=== PATIENT | male | born 1935 | race Caucasian/White ===

== ENCOUNTER 2022-05-05 19:47 | Emergency (ER) | payer OTHER ==
[2022-05-05 20:44] VITALS: TEMP 98; BMI 24.1
[2022-05-05 21:54] LABS: BASO % 0.6 % (0-2.0); EOS % 2.1 % (0-4.5); HEMATOCRIT 32.8 % (35.4-49); HEMOGLOBIN 10.6 GM/dL (11.7-16.9); LYMPH % 24.2 % (8-40); MCH 31.2 pg (25.7-33.7); MCHC 32.4 g/dl (32.0-35.9); MEAN CELL VOLUME 96.4 fl (80-96); MEAN PLT VOLUME 9.9 fl (7.5-11.1); MONO % 7.1 % (3.8-10.2); PLATELET COUNT 281 10^3/uL (134-434); RBC 3.41 M/mm3 (4.00-5.60); VENOUS O2 SATURATION 61.6 % (70-80); VENOUS PCO2 50.5 mmHg (38-52); VENOUS PH 7.401 (7.310-7.410); WHITE BLOOD COUNT 4.4 K/mm3 (4.0-10.0)
[2022-05-05 21:58] LABS: EPI CELLS 23 /uL (0-25.1); HYALINE CASTS 2 /uL (0-3.1); PH,URINE 7.5 (5.0-8.0); URINE APPEARANCE TURBID; URINE BACTERIA 6066 /uL (0-1359); URINE BILIRUBIN NEGATIVE (NEGATIVE); URINE COLOR YELLOW; URINE GLUCOSE (UA) NEGATIVE (NEGATIVE); URINE KETONE NEGATIVE (NEGATIVE); URINE LEUK ESTERASE 3+ (NEGATIVE); URINE NITRITE NEGATIVE (NEGATIVE); URINE PROTEIN 1+ (NEGATIVE); URINE RBC 146 /uL (0-23.9); URINE UROBILINOGEN 0.2 mg/dL (0.2-1.0); URINE WBC 1696 /uL (0-25.8)
[2022-05-05 22:04] LABS: INR 1.09 (0.83-1.09); PROTHROMBIN TIME (PATIENT) 12.5 SEC (9.7-13.0)
[2022-05-05 22:07] LABS: ACTIVATED PTT 29.1 SECONDS (25.2-36.5)
[2022-05-05 22:13] LABS: CHLORIDE 103 mmol/L (98-107); SODIUM 139 mmol/L (136-145)
[2022-05-05 22:15] LABS: CALCIUM 9.6 mg/dL (8.5-10.1)
[2022-05-05 22:16] LABS: ALBUMIN 2.6 g/dl (3.4-5.0); ANION GAP 6 MMOL/L (8-16); BLOOD UREA NITROGEN 15.2 mg/dL (7-18); CO2 30 mmol/L (21-32); GLUCOSE,RANDOM 95 mg/dL (74-106)
[2022-05-05 22:20] LABS: CREATININE 0.6 mg/dL (0.55-1.3); SGOT/AST 28 U/L (15-37); SGPT/ALT 39 U/L (13-61)
[2022-05-05 22:21] LABS: ALK PHOS 89 U/L (45-117); BILIRUBIN,TOTAL 0.2 mg/dL (0.2-1)
[2022-05-06 12:00] VITALS: BP 139/77; PULSE 86; RESP 17
== END 2022-05-06 12:13 | disposition home or self-care (01) ==
LOC: JER 19:47
DX: R06.02 Shortness of breath (principal)
CPT/HCPCS: 0241U-QW; 36415; 70450-TC; 71045-TC-FY; 80053; 80177; 81003; 82550; 82553; 82803; 83605; 84484; 85025; 85610; 85730; 86850; 86900; 86901; 87040; 87086; 87186; 93005; 93010; 99285-25

== ENCOUNTER 2022-09-15 14:23 | Emergency (ER) | payer OTHER ==
[2022-09-15 15:01] VITALS: BP 123/78; BMI 22.7
[2022-09-15 15:07] VITALS: PULSE 70
[2022-09-15] MEDS ORDERED: SODIUM CHLORIDE 500 ML IV STA (15:07)
[2022-09-15 15:24] VITALS: TEMP 97.9
[2022-09-15 15:51] LABS: BASO % 0.2 % (0-2.0); EOS % 0.8 % (0-4.5); HEMATOCRIT 28.7 % (35.4-49); HEMOGLOBIN 9.8 GM/dL (11.7-16.9); LYMPH % 35.7 % (8-40); MCH 32.7 pg (25.7-33.7); MONO % 8.7 % (3.8-10.2); NEUT % 54.6 % (42.8-82.8); PLATELET COUNT 214 10^3/uL (134-434); RBC 2.99 M/mm3 (4.00-5.60); RDW 15.4 % (11.9-15.9); WHITE BLOOD COUNT 5.9 K/mm3 (4.0-10.0)
[2022-09-15 15:52] LABS: EPI CELLS >36 /uL (0-25.1); HYALINE CASTS 18 /uL (0-3.1); URINE APPEARANCE TURBID; URINE BACTERIA 562 /uL (0-1359); URINE BILIRUBIN NEGATIVE (NEGATIVE); URINE COLOR YELLOW; URINE GLUCOSE (UA) NEGATIVE (NEGATIVE); URINE KETONE NEGATIVE (NEGATIVE); URINE LEUK ESTERASE 3+ (NEGATIVE); URINE NITRITE NEGATIVE (NEGATIVE); URINE PROTEIN 3+ (NEGATIVE); URINE WBC 15213 /uL (0-25.8)
[2022-09-15] MEDS ORDERED: CEFTRIAXONE 1,000 MG in DEXTROSE 5%-WATER - 50 ML IVPB ONE (15:54)
[2022-09-15 16:00] LABS: URINE RBC 419 /uL (0-23.9)
[2022-09-15 16:10] LABS: BLOOD UREA NITROGEN 17.9 mg/dL (7-18)
[2022-09-15 16:11] LABS: ALBUMIN 2.5 g/dl (3.4-5.0)
[2022-09-15 16:14] LABS: CREATININE 0.6 mg/dL (0.55-1.3)
[2022-09-15 16:16] LABS: BILIRUBIN,TOTAL 0.4 mg/dL (0.2-1); TOT PROT 6.9 g/dl (6.4-8.2)
[2022-09-15] MEDS ORDERED: CEFTRIAXONE 1 GM/50 ML BAG ONE (16:34)
[2022-09-15 17:30] VITALS: RESP 14
== END 2022-09-15 18:49 ==
LOC: JER 14:23
PROC: 3E033GC Introduction of Other Therapeutic Substance into Peripheral Vein, Percutaneous Approach (ICD-10-PCS; principal; 2022-09-15)
DX: N39.0 Urinary tract infection, site not specified (principal); T83.098A Other mechanical complication of other urinary catheter, initial encounter
CPT/HCPCS: 0241U-QW; 36415; 71045-TC-FY; 80053; 81003; 84484; 85025; 87086; 87186; 93005; 93010; 99285-25

== ENCOUNTER 2023-02-04 16:08 | Inpatient (IN) | payer OTHER ==
[2023-02-04 16:41] VITALS: BMI 23.9
[2023-02-04] MEDS ORDERED: PIPERACILLIN/TAZOB 4.5 GM 4.5 GM in DEXTROSE 5%-WATER 100 ML IVPB ONE (17:45)
[2023-02-04] MEDS ORDERED: VANCOMYCIN 1 GM in D5W (PRE-DOCKED) 1,000 MG/250 ML (RESTRICTED TO ID ONLY IVPB ONE (17:45)
[2023-02-04 18:03] LABS: ARTERIAL BLD GAS O2 SATURATION 98.7 % (95-98); ARTERIAL BLOOD GAS BASE EXCESS 3.1 mmol/L (-2-2); ARTERIAL BLOOD GAS PO2 131.7 mmHg (80-100)
[2023-02-04 18:04] LABS: ALLENS TEST POSITIVE; VENT MODE A/C
[2023-02-04 18:05] LABS: VENT RATE 14
[2023-02-04 18:08] LABS: POTASSIUM 4.5 mmol/L (3.5-5.1)
[2023-02-04 18:10] LABS: CALCIUM 9.6 mg/dL (8.5-10.1)
[2023-02-04 18:11] LABS: ALBUMIN 3.1 g/dl (3.4-5.0); BLOOD UREA NITROGEN 17.9 mg/dL (7-18)
[2023-02-04 18:14] LABS: CREATININE 0.7 mg/dL (0.55-1.3)
[2023-02-04 18:15] LABS: BILIRUBIN,TOTAL 0.4 mg/dL (0.2-1); TOT PROT 7.7 g/dl (6.4-8.2)
[2023-02-04] MEDS ORDERED: PIPERACILLIN/TAZOB 4.5 GM 4.5 GM/100 ML BAG IVPB ONE (18:43)
[2023-02-04 18:49] LABS: HEMATOCRIT 36.9 % (35.4-49); HEMOGLOBIN 12.2 GM/dL (11.7-16.9); MCH 31.6 pg (25.7-33.7); MCHC 33.1 g/dl (32.0-35.9); MEAN CELL VOLUME 95.5 fl (80-96); MEAN PLT VOLUME 10.9 fl (7.5-11.1); PLATELET COUNT 206 10^3/uL (134-434); RBC 3.87 M/mm3 (4.00-5.60); RDW 14.4 % (11.9-15.9); WHITE BLOOD COUNT 11.2 K/mm3 (4.0-10.0)
[2023-02-04 19:15] LABS: ANISOCYTOSIS 1+; MACROCYTOSIS 0
[2023-02-04] MEDS ORDERED: VANCOMYCIN/WATER FOR INJ (PEG) 1,000 MG/200 ML BAG IVPB ONE (19:24)
[2023-02-04 20:50] LABS: EPI CELLS 12 /uL (0-25.1); HYALINE CASTS 2 /uL (0-3.1); PH,URINE 7.5 (5.0-8.0); URINE APPEARANCE TURBID; URINE BACTERIA >9,000 /uL (0-1359); URINE BILIRUBIN NEGATIVE (NEGATIVE); URINE COLOR YELLOW; URINE GLUCOSE (UA) NEGATIVE (NEGATIVE); URINE KETONE NEGATIVE (NEGATIVE); URINE LEUK ESTERASE 3+ (NEGATIVE); URINE NITRITE NEGATIVE (NEGATIVE); URINE PROTEIN 2+ (NEGATIVE); URINE RBC 970 /uL (0-23.9); URINE UROBILINOGEN 0.2 mg/dL (0.2-1.0); URINE WBC 3290 /uL (0-25.8)
[2023-02-04] MEDS ORDERED: levETIRAcetam 500 MG/5 ML ORAL SOLUTION (UNIT-DOSE CUPS) GT SCH (22:30)
[2023-02-05] MEDS ORDERED: levETIRAcetam 500 MG/5 ML INJECTION VIAL IVPB ONE ×2 (00:35→09:17)
[2023-02-05] MEDS: levETIRAcetam 500 MG/5 ML INJECTION VIAL IVPB SCH ×3 (00:44→21:12)
[2023-02-05] MEDS ORDERED: PIPERACILLIN/TAZOB 3.375 GM 3.375 GM in DEXTROSE 5%-WATER - 50 ML IVPB SCH ×2 (01:31→02:00)
[2023-02-05] MEDS ORDERED: PIPERACILLIN/TAZOB 3.375 GM 3.375 GM/50 ML BAG IVPB ONE ×2 (04:14→12:54)
[2023-02-05] MEDS: PIPERACILLIN/TAZOB 3.375 GM 3.375 GM in DEXTROSE 5%-WATER - 50 ML IVPB SCH ×3 (04:21→21:12)
[2023-02-05 07:13] LABS: POTASSIUM 3.8 mmol/L (3.5-5.1)
[2023-02-05] MEDS ORDERED: amLODIPine BESYLATE 10 MG TABLET (FP) PO SCH (07:13)
[2023-02-05 07:17] LABS: BLOOD UREA NITROGEN 16.5 mg/dL (7-18); CALCIUM 9.4 mg/dL (8.5-10.1); MAGNESIUM 2.2 mg/dL (1.8-2.4)
[2023-02-05 07:20] LABS: CREATININE 0.7 mg/dL (0.55-1.3); PHOSPHOROUS 2.6 mg/dL (2.5-4.9)
[2023-02-05 07:21] LABS: BASO % 0.3 % (0-2.0); EOS % 0.4 % (0-4.5); HEMATOCRIT 34.7 % (35.4-49); HEMOGLOBIN 11.7 GM/dL (11.7-16.9); MCH 32.1 pg (25.7-33.7); MCHC 33.6 g/dl (32.0-35.9); MEAN CELL VOLUME 95.4 fl (80-96); MEAN PLT VOLUME 10.3 fl (7.5-11.1); MONO % 8.7 % (3.8-10.2); NEUT % 64.6 % (42.8-82.8); PLATELET COUNT 187 10^3/uL (134-434); RBC 3.63 M/mm3 (4.00-5.60); RDW 14.3 % (11.9-15.9); WHITE BLOOD COUNT 5.8 K/mm3 (4.0-10.0)
[2023-02-05 07:22] LABS: BILIRUBIN,TOTAL 0.7 mg/dL (0.2-1); TOT PROT 7.1 g/dl (6.4-8.2)
[2023-02-05] MEDS ORDERED: ENOXAPARIN NA (PORCINE) 40 MG/0.4 ML DISP.SYRIN SQ ONE (09:17)
[2023-02-05] MEDS ORDERED: amLODIPine BESYLATE 10 MG TABLET (FP) ONE (09:53)
[2023-02-05] MEDS ORDERED: hydrALAZINE HCL 10 MG TABLET ONE (09:53)
[2023-02-05] MEDS ORDERED: hydrALAZINE HCL 10 MG TABLET PO SCH (10:00)
[2023-02-05] MEDS: ENOXAPARIN NA (PORCINE) 40 MG/0.4 ML DISP.SYRIN SQ SCH (10:32)
[2023-02-05] MEDS: amLODIPine BESYLATE 10 MG TABLET (FP) GT SCH (10:32)
[2023-02-05] MEDS: hydrALAZINE HCL 10 MG TABLET GT SCH (21:12)
[2023-02-06] MEDS: PIPERACILLIN/TAZOB 3.375 GM 3.375 GM in DEXTROSE 5%-WATER - 50 ML IVPB SCH ×3 (02:16→17:34)
[2023-02-06 10:17] LABS: POTASSIUM 3.9 mmol/L (3.5-5.1)
[2023-02-06 10:20] LABS: BLOOD UREA NITROGEN 17.2 mg/dL (7-18); CALCIUM 9.3 mg/dL (8.5-10.1)
[2023-02-06 10:21] LABS: ALBUMIN 2.7 g/dl (3.4-5.0)
[2023-02-06 10:24] LABS: BILIRUBIN,TOTAL 0.6 mg/dL (0.2-1); TOT PROT 6.8 g/dl (6.4-8.2)
[2023-02-06] MEDS: levETIRAcetam 500 MG/5 ML INJECTION VIAL IVPB SCH ×2 (10:58→21:43)
[2023-02-06] MEDS: THIAMINE HCL 100 MG TABLET (FP) NGT SCH (10:58)
[2023-02-06] MEDS: ENOXAPARIN NA (PORCINE) 40 MG/0.4 ML DISP.SYRIN SQ SCH (10:58)
[2023-02-06] MEDS: ASCORBIC ACID 500 MG/5 ML UNIT DOSE CUP GT SCH (10:58)
[2023-02-06] MEDS: amLODIPine BESYLATE 10 MG TABLET (FP) GT SCH (10:58)
[2023-02-06] MEDS: hydrALAZINE HCL 10 MG TABLET GT SCH ×2 (10:58→21:43)
[2023-02-07] MEDS: PIPERACILLIN/TAZOB 3.375 GM 3.375 GM in DEXTROSE 5%-WATER - 50 ML IVPB SCH ×3 (01:54→17:02)
[2023-02-07] MEDS: levETIRAcetam 500 MG/5 ML INJECTION VIAL IVPB SCH (09:54)
[2023-02-07] MEDS: ASCORBIC ACID 500 MG/5 ML UNIT DOSE CUP GT SCH (09:55)
[2023-02-07] MEDS: hydrALAZINE HCL 10 MG TABLET GT SCH (09:55)
[2023-02-07] MEDS: ENOXAPARIN NA (PORCINE) 40 MG/0.4 ML DISP.SYRIN SQ SCH (09:55)
[2023-02-07] MEDS: amLODIPine BESYLATE 10 MG TABLET (FP) GT SCH (09:55)
[2023-02-07] MEDS: THIAMINE HCL 100 MG TABLET (FP) NGT SCH (09:55)
[2023-02-07 10:46] LABS: POTASSIUM 3.8 mmol/L (3.5-5.1)
[2023-02-07 10:54] LABS: ALBUMIN 2.6 g/dl (3.4-5.0); BLOOD UREA NITROGEN 19.1 mg/dL (7-18); CALCIUM 9.3 mg/dL (8.5-10.1); CREATININE 0.8 mg/dL (0.55-1.3)
[2023-02-07 10:55] LABS: BILIRUBIN,TOTAL 0.3 mg/dL (0.2-1); TOT PROT 6.4 g/dl (6.4-8.2)
[2023-02-07 14:36] VITALS: RESP 18
[2023-02-07 18:36] VITALS: BP 148/68; PULSE 65; TEMP 98
== END 2023-02-07 19:32 | DRG 698 ==
LOC: JER 16:08 → JERBED 18:18 → J5S 02-05 20:11
PROVIDERS: ADMIT Internal Medicine; ATTEND Internal Medicine
PROC: 5A1945Z Respiratory Ventilation, 24-96 Consecutive Hours (ICD-10-PCS; principal; 2023-02-04)
DX: T83.511A Infection and inflammatory reaction due to indwelling urethral catheter, initial encounter (principal); J69.0 Pneumonitis due to inhalation of food and vomit; J96.10 Chronic respiratory failure, unspecified whether with hypoxia or hypercapnia; Z99.11 Dependence on respirator [ventilator] status; T83.010A Breakdown (mechanical) of cystostomy catheter, initial encounter; N39.0 Urinary tract infection, site not specified; F02.80 Dementia in other diseases classified elsewhere, unspecified severity, without behavioral disturbance, psychotic disturbance, mood disturbance, and anxiety; G30.9 Alzheimer's disease, unspecified; Z93.0 Tracheostomy status; Y83.9 Surgical procedure, unspecified as the cause of abnormal reaction of the patient, or of later complication, without mention of misadventure at the time of the procedure; I10 Essential (primary) hypertension; R62.7 Adult failure to thrive; E78.5 Hyperlipidemia, unspecified
CPT/HCPCS: 0241U-QW; 36415; 36600; 71045-TC-FY; 80053; 81003; 82803; 83605; 83735; 84100; 84484; 85025; 87081; 87086; 93005; 93010; 94002; 99285-25

== ENCOUNTER 2023-06-25 19:28 | Emergency (ER) | payer OTHER ==
[2023-06-25 19:35] VITALS: BMI 25.0
[2023-06-25 20:34] VITALS: RESP 15
[2023-06-25 20:53] LABS: EPI CELLS >36 /uL (0-25.1); HYALINE CASTS 92 /uL (0-3.1); URINE APPEARANCE Error; URINE BACTERIA >9,000 /uL (0-1359); URINE BILIRUBIN NEGATIVE (NEGATIVE); URINE COLOR YELLOW; URINE GLUCOSE (UA) NEGATIVE (NEGATIVE); URINE KETONE NEGATIVE (NEGATIVE); URINE LEUK ESTERASE 3+ (NEGATIVE); URINE NITRITE POSITIVE (NEGATIVE); URINE PROTEIN 2+ (NEGATIVE); URINE WBC 9498 /uL (0-25.8)
[2023-06-25] MEDS ORDERED: NITROFURANTOIN MACROCRYSTAL 50 MG CAPSULE (FP) PO ONE (21:00)
[2023-06-25] MEDS ORDERED: NITROFURANTOIN MACROCRYSTAL 50 MG CAPSULE (FP) PO SCH (21:00)
[2023-06-25 22:37] LABS: URINE RBC 341.7 /uL (0-23.9); YEAST NONE SEEN (NEGATIVE)
[2023-06-25] MEDS ORDERED: CEFPODOXIME PROXETIL 100 MG TABLET PO ONE (23:00)
[2023-06-26 00:49] VITALS: BP 144/72; TEMP 98.2
[2023-06-26 02:40] VITALS: PULSE 78
== END 2023-06-26 04:42 ==
LOC: JER 19:28
PROC: 0T2BX0Z Change Drainage Device in Bladder, External Approach (ICD-10-PCS; principal; 2023-06-25)
DX: T83.098A Other mechanical complication of other urinary catheter, initial encounter (principal); T83.511A Infection and inflammatory reaction due to indwelling urethral catheter, initial encounter
CPT/HCPCS: 81003; 87086; 87186; 99283-25

== ENCOUNTER 2023-09-15 13:19 | Inpatient (IN) | payer OTHER ==
[2023-09-15 14:12] LABS: BASO % 0.1 % (0-2.0); EOS % 1.7 % (0-4.5); EPI CELLS >36 /uL (0-25.1); HEMATOCRIT 24.6 % (35.4-49); HEMOGLOBIN 7.8 GM/dL (11.7-16.9); HYALINE CASTS 6 /uL (0-3.1); LYMPH % 15.6 % (8-40); MCH 29.5 pg (25.7-33.7); MCHC 31.8 g/dl (32.0-35.9); MEAN CELL VOLUME 92.6 fl (80-96); MEAN PLT VOLUME 8.7 fl (7.5-11.1); MONO % 3.1 % (3.8-10.2); NEUT % 79.5 % (42.8-82.8); PH,URINE 7.5 (5.0-8.0); PLATELET COUNT 447 10^3/uL (134-434); RBC 2.65 M/mm3 (4.00-5.60); RDW 16.8 % (11.9-15.9); URINE APPEARANCE CLOUDY; URINE BACTERIA 387 /uL (0-1359); URINE BILIRUBIN NEGATIVE (NEGATIVE); URINE COLOR YELLOW; URINE GLUCOSE (UA) NEGATIVE (NEGATIVE); URINE KETONE NEGATIVE (NEGATIVE); URINE LEUK ESTERASE 3+ (NEGATIVE); URINE NITRITE NEGATIVE (NEGATIVE); URINE PROTEIN 2+ (NEGATIVE); URINE RBC 35 /uL (0-23.9); URINE UROBILINOGEN 0.2 mg/dL (0.2-1.0); URINE WBC 848 /uL (0-25.8); WHITE BLOOD COUNT 10.1 K/mm3 (4.0-10.0)
[2023-09-15 14:17] LABS: INR 1.27 (0.83-1.09); PROTHROMBIN TIME (PATIENT) 14.7 SEC (9.7-13.0)
[2023-09-15 14:20] LABS: ACTIVATED PTT 29.3 SECONDS (25.2-36.5)
[2023-09-15 14:27] LABS: VENOUS BASE EXCESS 6.7 mmol/L (-2-2); VENOUS O2 SATURATION 91.3 % (70-80); VENOUS PCO2 45.8 mmHg (38-52); VENOUS PH 7.452 (7.310-7.410)
[2023-09-15 14:35] LABS: POTASSIUM 4.5 mmol/L (3.5-5.1)
[2023-09-15 14:37] LABS: CALCIUM 9.5 mg/dL (8.5-10.1)
[2023-09-15 14:38] LABS: ALBUMIN 1.6 g/dl (3.4-5.0); BLOOD UREA NITROGEN 51.3 mg/dL (7-18)
[2023-09-15 14:41] LABS: CREATININE 1.2 mg/dL (0.55-1.3)
[2023-09-15 14:43] LABS: BILIRUBIN,TOTAL 0.2 mg/dL (0.2-1); TOT PROT 7.3 g/dl (6.4-8.2)
[2023-09-15] MEDS ORDERED: PIPERACILLIN/TAZOB 4.5 GM 4.5 GM/100 ML BAG IVPB ONE (15:05)
[2023-09-15] MEDS ORDERED: VANCOMYCIN 1 GRAM (PRE-DOCKED) 1,000 MG/250 ML BAG IVPB ONE (15:09)
[2023-09-15] MEDS: PIPERACILLIN/TAZOBACTAM 4.5 GM VIAL IVPB ONE (15:22)
[2023-09-15] MEDS: VANCOMYCIN 1,000 MG in DEXTROSE 5%-WATER - 250 ML IVPB ONE (15:22)
[2023-09-15] MEDS: SODIUM CHLORIDE 0.9% 500 ML INFUS.BAG IV ONE (15:42)
[2023-09-15] MEDS: DEXTROSE 5%-WATER - 1,000 ML IV SCH (18:21)
[2023-09-15 19:29] LABS: LACTIC ACID 2.1 mmol/L (0.4-2.0)
[2023-09-15] MEDS ORDERED: MEROPENEM 1 GM VIAL (RESTRICTED TO ID) IVPB ONE (20:04)
[2023-09-15] MEDS: MEROPENEM 1 GM in DEXTROSE 5%-WATER 100 ML IVPB SCH (20:11)
[2023-09-15] MEDS ORDERED: levETIRAcetam 500 MG TABLET (FP) PO ONE (22:22)
[2023-09-15] MEDS: INSULIN ASPART SLIDING SCALE (NOVOLOG) 1 VIAL SQ SCH (22:31)
[2023-09-15] MEDS: levETIRAcetam 500 MG/5 ML ORAL SOLUTION (UNIT-DOSE CUPS) GT SCH (22:31)
[2023-09-16] MEDS ORDERED: PIPERACILLIN/TAZOB 3.375 GM 3.375 GM in DEXTROSE 5%-WATER - 50 ML IVPB SCH (02:00)
[2023-09-16 07:21] LABS: BASO % 0.1 % (0-2.0); EOS % 1.2 % (0-4.5); HEMATOCRIT 25.2 % (35.4-49); HEMOGLOBIN 7.8 GM/dL (11.7-16.9); LYMPH % 14.7 % (8-40); MCH 28.9 pg (25.7-33.7); MEAN CELL VOLUME 93.3 fl (80-96); MEAN PLT VOLUME 9.3 fl (7.5-11.1); PLATELET COUNT 406 10^3/uL (134-434); RDW 16.9 % (11.9-15.9); WHITE BLOOD COUNT 11.5 K/mm3 (4.0-10.0)
[2023-09-16 07:45] LABS: ALBUMIN 1.7 g/dl (3.4-5.0); BLOOD UREA NITROGEN 39.9 mg/dL (7-18); CALCIUM 8.9 mg/dL (8.5-10.1); MAGNESIUM 2.5 mg/dL (1.8-2.4)
[2023-09-16 07:49] LABS: CREATININE 1.2 mg/dL (0.55-1.3); PHOSPHOROUS 3.1 mg/dL (2.5-4.9)
[2023-09-16 07:51] LABS: BILIRUBIN,TOTAL 0.4 mg/dL (0.2-1); TOT PROT 7.2 g/dl (6.4-8.2)
[2023-09-16] MEDS: ENOXAPARIN NA (PORCINE) 40 MG/0.4 ML DISP.SYRIN SQ SCH (09:00)
[2023-09-16] MEDS ORDERED: PNEUMOC 20-VAL CONJ-DIP CRM/PF 0.5 ML SYRINGE IM ONE (10:00)
[2023-09-16] MEDS: VANCOMYCIN/WATER FOR INJ (PEG) 1,000 MG/200 ML BAG IVPB SCH (14:06)
[2023-09-16] MEDS ORDERED: VANCOMYCIN/WATER FOR INJ (PEG) 1,000 MG/200 ML BAG IVPB SCH (15:00)
[2023-09-16] MEDS: MEROPENEM 1 GM in DEXTROSE 5%-WATER 100 ML IVPB SCH (21:49)
[2023-09-17 07:43] LABS: BASO % 0.3 % (0-2.0); HEMATOCRIT 22.8 % (35.4-49); HEMOGLOBIN 7.1 GM/dL (11.7-16.9); LYMPH % 15.6 % (8-40); MCHC 31.4 g/dl (32.0-35.9); MEAN CELL VOLUME 92.3 fl (80-96); MEAN PLT VOLUME 9.7 fl (7.5-11.1); MONO % 3.2 % (3.8-10.2); NEUT % 79.9 % (42.8-82.8); PLATELET COUNT 371 10^3/uL (134-434); RBC 2.47 M/mm3 (4.00-5.60); RDW 16.3 % (11.9-15.9); WHITE BLOOD COUNT 9.3 K/mm3 (4.0-10.0)
[2023-09-17 08:01] LABS: POTASSIUM 3.1 mmol/L (3.5-5.1)
[2023-09-17 08:04] LABS: ALBUMIN 1.5 g/dl (3.4-5.0); BLOOD UREA NITROGEN 29.7 mg/dL (7-18)
[2023-09-17 08:07] LABS: CREATININE 0.9 mg/dL (0.55-1.3)
[2023-09-17 08:08] LABS: BILIRUBIN,TOTAL 0.4 mg/dL (0.2-1); TOT PROT 6.6 g/dl (6.4-8.2)
[2023-09-17 08:14] LABS: CALCIUM 8.5 mg/dL (8.5-10.1)
[2023-09-17] MEDS: POTASSIUM CHLORIDE ORAL LIQUID 20 MEQ/15 ML GT ONE (09:40)
[2023-09-17] MEDS: KCL 10 MEQ IVPB 10 MEQ/100 ML INFUS.BAG IVPB SCH (09:45)
[2023-09-17] MEDS: THIAMINE HCL 100 MG TABLET (FP) NGT SCH (16:07)
[2023-09-17] MEDS: ACETAMINOPHEN 1000 MG/100 ML BAG IVPB ONE (20:20)
[2023-09-17] MEDS: levETIRAcetam 500 MG/5 ML INJECTION VIAL IVPB SCH (21:21)
[2023-09-18 07:47] LABS: BASO % 0.3 % (0-2.0); EOS % 1.4 % (0-4.5); HEMATOCRIT 20.8 % (35.4-49); MCH 29.7 pg (25.7-33.7); MCHC 31.7 g/dl (32.0-35.9); MEAN CELL VOLUME 93.6 fl (80-96); MEAN PLT VOLUME 9.5 fl (7.5-11.1); MONO % 5.7 % (3.8-10.2); NEUT % 77.6 % (42.8-82.8); PLATELET COUNT 315 10^3/uL (134-434); RBC 2.22 M/mm3 (4.00-5.60); RDW 16.3 % (11.9-15.9)
[2023-09-18 07:57] LABS: POTASSIUM 3.2 mmol/L (3.5-5.1)
[2023-09-18 08:05] LABS: ALBUMIN 1.4 g/dl (3.4-5.0); BLOOD UREA NITROGEN 24.1 mg/dL (7-18)
[2023-09-18 08:06] LABS: MAGNESIUM 2.2 mg/dL (1.8-2.4)
[2023-09-18 08:07] LABS: BILIRUBIN,TOTAL 0.6 mg/dL (0.2-1); CREATININE 0.9 mg/dL (0.55-1.3); TOT PROT 6.3 g/dl (6.4-8.2)
[2023-09-18 08:30] LABS: HEMOGLOBIN 6.6 GM/dL (11.7-16.9)
[2023-09-18 13:40] LABS: RETICULOCYTES 1.42 % (0.5-1.5)
[2023-09-18] MEDS: POTASSIUM CHLORIDE ORAL LIQUID 20 MEQ/15 ML GT ONE ×2 (17:56→18:59)
[2023-09-18 20:51] LABS: HEMATOCRIT 26.1 % (35.4-49); HEMOGLOBIN 8.6 GM/dL (11.7-16.9); MCH 30.5 pg (25.7-33.7); MCHC 32.9 g/dl (32.0-35.9); MEAN CELL VOLUME 92.6 fl (80-96); MEAN PLT VOLUME 9.2 fl (7.5-11.1); PLATELET COUNT 310 10^3/uL (134-434); RBC 2.82 M/mm3 (4.00-5.60); RDW 15.5 % (11.9-15.9); WHITE BLOOD COUNT 10.2 K/mm3 (4.0-10.0)
[2023-09-19 07:15] LABS: BASO % 0.2 % (0-2.0); EOS % 1.3 % (0-4.5); HEMOGLOBIN 8.3 GM/dL (11.7-16.9); MCH 30.3 pg (25.7-33.7); MCHC 33.1 g/dl (32.0-35.9); MEAN CELL VOLUME 91.8 fl (80-96); MEAN PLT VOLUME 9.3 fl (7.5-11.1); MONO % 5.5 % (3.8-10.2); PLATELET COUNT 347 10^3/uL (134-434); RBC 2.72 M/mm3 (4.00-5.60); RDW 15.6 % (11.9-15.9); WHITE BLOOD COUNT 9.6 K/mm3 (4.0-10.0)
[2023-09-19 07:29] LABS: POTASSIUM 3.4 mmol/L (3.5-5.1)
[2023-09-19 07:35] LABS: CALCIUM 8.4 mg/dL (8.5-10.1)
[2023-09-19 07:36] LABS: ALBUMIN 1.5 g/dl (3.4-5.0); BLOOD UREA NITROGEN 18.8 mg/dL (7-18); MAGNESIUM 2.1 mg/dL (1.8-2.4)
[2023-09-19 07:39] LABS: CREATININE 0.7 mg/dL (0.55-1.3); PHOSPHOROUS 2.2 mg/dL (2.5-4.9)
[2023-09-19 07:41] LABS: BILIRUBIN,TOTAL 0.6 mg/dL (0.2-1)
[2023-09-19] MEDS: PANTOPRAZOLE SODIUM 40 MG VIAL IVPUSH SCH (09:26)
[2023-09-19] MEDS ORDERED: INSULIN (NOVOLOG) ASPART 100 UNITS/ML 10ML VIAL ONE (11:35)
[2023-09-19] MEDS: NAPH,MB-DB/K PH,MBDB POWDER PACKET PO SCH (13:00)
[2023-09-20] MEDS ORDERED: MEROPENEM 1 GM in DEXTROSE 5%-WATER 100 ML IVPB SCH (10:00)
[2023-09-20 10:26] LABS: HEMATOCRIT 23.7 % (35.4-49); HEMOGLOBIN 7.9 GM/dL (11.7-16.9); MCH 30.8 pg (25.7-33.7); MCHC 33.4 g/dl (32.0-35.9); MEAN PLT VOLUME 8.9 fl (7.5-11.1); PLATELET COUNT 325 10^3/uL (134-434); RBC 2.58 M/mm3 (4.00-5.60); RDW 15.7 % (11.9-15.9); WHITE BLOOD COUNT 7.5 K/mm3 (4.0-10.0)
[2023-09-20 10:45] LABS: POTASSIUM 3.4 mmol/L (3.5-5.1)
[2023-09-20] MEDS: MEROPENEM 1 GM in DEXTROSE 5%-WATER 100 ML IVPB SCH (10:51)
[2023-09-20 10:53] LABS: ALBUMIN 1.4 g/dl (3.4-5.0); BLOOD UREA NITROGEN 17.2 mg/dL (7-18)
[2023-09-20 10:55] LABS: BILIRUBIN,TOTAL 0.4 mg/dL (0.2-1); TOT PROT 6.7 g/dl (6.4-8.2)
[2023-09-20 10:56] LABS: CREATININE 0.8 mg/dL (0.55-1.3)
[2023-09-20 11:09] VITALS: BMI 28.1
[2023-09-20] MEDS: INSULIN ASPART SLIDING SCALE (NOVOLOG) 1 VIAL SQ SCH (11:56)
[2023-09-20] MEDS: AMINO ACIDS/PROTEIN HYDROLYS 30 ML LIQUID.PKT GT SCH (17:25)
[2023-09-20] MEDS: ASCORBIC ACID 500 MG/5 ML UNIT DOSE CUP GT SCH (21:21)
[2023-09-21 08:58] LABS: HEMATOCRIT 21.5 % (35.4-49); HEMOGLOBIN 7.3 GM/dL (11.7-16.9); MCHC 33.8 g/dl (32.0-35.9); MEAN CELL VOLUME 91.8 fl (80-96); MEAN PLT VOLUME 8.9 fl (7.5-11.1); PLATELET COUNT 297 10^3/uL (134-434); RBC 2.34 M/mm3 (4.00-5.60); RDW 15.4 % (11.9-15.9); WHITE BLOOD COUNT 6.8 K/mm3 (4.0-10.0)
[2023-09-21 09:16] LABS: POTASSIUM 3.4 mmol/L (3.5-5.1)
[2023-09-21 09:21] LABS: CALCIUM 7.6 mg/dL (8.5-10.1)
[2023-09-21 09:22] LABS: ALBUMIN 1.3 g/dl (3.4-5.0); BLOOD UREA NITROGEN 17.8 mg/dL (7-18)
[2023-09-21 09:25] LABS: CREATININE 0.8 mg/dL (0.55-1.3)
[2023-09-21 09:26] LABS: BILIRUBIN,TOTAL 0.4 mg/dL (0.2-1); TOT PROT 6.4 g/dl (6.4-8.2)
[2023-09-21] MEDS: KCL 10 MEQ IVPB 10 MEQ/100 ML INFUS.BAG IVPB SCH (15:06)
[2023-09-22 09:58] LABS: BASO % 0.3 % (0-2.0); EOS % 1.7 % (0-4.5); HEMATOCRIT 20.7 % (35.4-49); MCH 31.1 pg (25.7-33.7); MCHC 33.7 g/dl (32.0-35.9); MEAN CELL VOLUME 92.3 fl (80-96); MEAN PLT VOLUME 8.7 fl (7.5-11.1); MONO % 6.9 % (3.8-10.2); NEUT % 68.1 % (42.8-82.8); PLATELET COUNT 302 10^3/uL (134-434); RBC 2.24 M/mm3 (4.00-5.60); RDW 15.7 % (11.9-15.9); WHITE BLOOD COUNT 6.7 K/mm3 (4.0-10.0)
[2023-09-22 10:16] LABS: POTASSIUM 3.9 mmol/L (3.5-5.1)
[2023-09-22 10:20] LABS: ALBUMIN 1.3 g/dl (3.4-5.0); BLOOD UREA NITROGEN 23.9 mg/dL (7-18); CALCIUM 7.8 mg/dL (8.5-10.1)
[2023-09-22 10:23] LABS: CREATININE 0.8 mg/dL (0.55-1.3)
[2023-09-22 10:25] LABS: TOT PROT 6.2 g/dl (6.4-8.2)
[2023-09-22 10:28] LABS: BILIRUBIN,TOTAL 0.7 mg/dL (0.2-1)
[2023-09-22] MEDS: ACETAMINOPHEN 1000 MG/100 ML BAG IVPB PRN (18:28)
[2023-09-22] MEDS: levETIRAcetam 500 MG/5 ML ORAL SOLUTION (UNIT-DOSE CUPS) PO SCH (23:31)
[2023-09-23] MEDS: ACETAMINOPHEN 1000 MG/100 ML BAG IVPB ONE (20:55)
[2023-09-25] MEDS ORDERED: LORazepam 2 MG/ML SDV VIAL IVPUSH PRN (11:01)
[2023-09-25] MEDS: MORPHINE SULFATE/0.9% NACL/PF 100 MG/100 ML BAG IVPB SCH (11:52)
[2023-09-25] MEDS: MORPHINE 100 MG/100 ML MG IVPB SCH (12:28)
[2023-09-26] MEDS: MORPHINE SULFATE/0.9% NACL/PF 100 MG/100 ML BAG IVPB SCH (12:18)
[2023-09-26] MEDS: SCOPOLAMINE HYDROBROMIDE 1 PATCH PATCH.TD72 TD SCH (13:46)
[2023-09-27 06:43] VITALS: BP 138/66
[2023-09-27] MEDS: ACETAMINOPHEN 650 MG/20.3 ML ORAL SOLUTION (CUPS) GT PRN (17:39)
[2023-09-28 05:22] VITALS: RESP 12
[2023-09-28 05:42] VITALS: PULSE 95
[2023-09-28 09:08] VITALS: TEMP 98.6
[2023-09-28] MEDS ORDERED: morphine SULFATE 4 MG/ML VIAL IVPUSH ONE (10:21)
[2023-09-28] MEDS: morphine SULFATE 4 MG/ML VIAL IVPUSH ONE (14:44)
== END 2023-09-28 15:35 | disposition hospice, inpatient (51) | DRG 698 ==
LOC: JER 13:19 → JERBED 15:00 → J2W 09-16 05:12 → J5S 09-19 23:04
PROVIDERS: ADMIT Internal Medicine; ATTEND Internal Medicine
PROC: 5A1955Z Respiratory Ventilation, Greater than 96 Consecutive Hours (ICD-10-PCS; principal; 2023-09-15)
PROC: 0D20XUZ Change Feeding Device in Upper Intestinal Tract, External Approach (ICD-10-PCS; 2023-09-17)
PROC: 30233N1 Transfusion of Nonautologous Red Blood Cells into Peripheral Vein, Percutaneous Approach (ICD-10-PCS; 2023-09-18)
DX: T83.510A Infection and inflammatory reaction due to cystostomy catheter, initial encounter (principal); A41.9 Sepsis, unspecified organism; L89.154 Pressure ulcer of sacral region, stage 4; E87.0 Hyperosmolality and hypernatremia; N17.9 Acute kidney failure, unspecified; E87.20 Acidosis, unspecified; Z99.11 Dependence on respirator [ventilator] status; J96.11 Chronic respiratory failure with hypoxia; D64.9 Anemia, unspecified; J44.9 Chronic obstructive pulmonary disease, unspecified; Y83.9 Surgical procedure, unspecified as the cause of abnormal reaction of the patient, or of later complication, without mention of misadventure at the time of the procedure; I11.0 Hypertensive heart disease with heart failure; Z93.1 Gastrostomy status; Z93.0 Tracheostomy status; E86.0 Dehydration; E11.65 Type 2 diabetes mellitus with hyperglycemia; G30.9 Alzheimer's disease, unspecified; F02.80 Dementia in other diseases classified elsewhere, unspecified severity, without behavioral disturbance, psychotic disturbance, mood disturbance, and anxiety; I50.9 Heart failure, unspecified
CPT/HCPCS: 0241U-QW; 36415; 36430; 71045-TC-FY; 74018-TC-FY; 74246-TC-FY; 80053; 81003; 82272; 82550; 82728; 82803; 82962; 83540; 83550; 83605; 83735; 84100; 84484; 85025; 85027; 85045; 85610; 85730; 86850; 86900; 86901; 86922; 87040; 87070; 87086; 87186; 87205; 87899; 93005; 93010; 94002; 99285-25; J0131; P9058